=== PATIENT | male | born 1935 | race Asian ===

== ENCOUNTER 2020-11-24 15:58 | Inpatient (IN) | payer OTHER ==
[2020-11-24 20:06] LABS: BASO % 0.1 % (0-2.0); HEMATOCRIT 37.5 % (35.4-49); HEMOGLOBIN 12.5 GM/dL (11.7-16.9); LYMPH % 11.4 % (8-40); MCH 31.3 pg (25.7-33.7); MCHC 33.5 g/dl (32.0-35.9); MEAN CELL VOLUME 93.6 fl (80-96); MEAN PLT VOLUME 7.9 fl (7.5-11.1); NEUT % 82.5 % (42.8-82.8); PLATELET COUNT 267 K/MM3 (134-434); RDW 12.9 % (11.9-15.9); WHITE BLOOD COUNT 6.4 K/mm3 (4.0-10.0)
[2020-11-24 20:23] LABS: ALBUMIN 2.7 g/dl (3.4-5.0); CALCIUM 8.1 mg/dL (8.5-10.1)
[2020-11-24 20:24] LABS: BLOOD UREA NITROGEN 29.8 mg/dL (7-18); MAGNESIUM 2.2 mg/dL (1.8-2.4)
[2020-11-24 20:27] LABS: CREATININE 1.3 mg/dL (0.55-1.3)
[2020-11-24 20:28] LABS: BILIRUBIN,TOTAL 0.9 mg/dL (0.2-1); TOT PROT 6.3 g/dl (6.4-8.2)
[2020-11-24] MEDS ORDERED: AZITHROMYCIN IVPB 500 MG in DEXTROSE 5%-WATER - 250 ML IVPB ONE (21:15)
[2020-11-24] MEDS ORDERED: CEFTRIAXONE 1,000 MG in DEXTROSE 5%-WATER - 50 ML IVPB ONE (21:15)
[2020-11-24] MEDS ORDERED: CEFTRIAXONE 1 GM/50 ML BAG ONE (22:01)
[2020-11-24] MEDS ORDERED: AZITHROMYCIN IVPB 500 MG/250 ML BAG IVPB ONE (22:01)
[2020-11-24] MEDS: SODIUM CHLORIDE 1,000 ML IV SCH (22:13)
[2020-11-25] MEDS ORDERED: ENOXAPARIN NA (PORCINE) 40 MG/0.4 ML DISP.SYRIN SQ ONE (08:05)
[2020-11-25] MEDS ORDERED: PANTOPRAZOLE 40 MG TABLET ONE (08:06)
[2020-11-25] MEDS: SODIUM CHLORIDE 1,000 ML IV SCH ×2 (08:39→21:42)
[2020-11-25] MEDS ORDERED: CEFTRIAXONE 1 GM/50 ML BAG ONE (08:51)
[2020-11-25] MEDS: ENOXAPARIN NA (PORCINE) 40 MG/0.4 ML DISP.SYRIN SQ SCH (09:54)
[2020-11-25] MEDS: CEFTRIAXONE 1 GM in DEXTROSE 5%-WATER - 50 ML IVPB SCH (09:55)
[2020-11-25] MEDS ORDERED: PANTOPRAZOLE 40 MG TABLET PO SCH (10:00)
[2020-11-25 11:30] LABS: MAGNESIUM 1.8 mg/dL (1.8-2.4)
[2020-11-25 11:36] LABS: PHOSPHOROUS 2.5 mg/dL (2.5-4.9)
[2020-11-25] MEDS ORDERED: AZITHROMYCIN IVPB 250 MG in DEXTROSE 5%-WATER - 250 ML IVPB SCH (12:45)
[2020-11-25] MEDS ORDERED: methylPREDNISolone NA SUCC 40 MG/1 ML VIAL ONE (13:51)
[2020-11-25] MEDS: methylPREDNISolone NA SUCC 40 MG/1 ML VIAL IVPUSH SCH (14:03)
[2020-11-26] MEDS ORDERED: cefTRIAXone SODIUM 1 GM VIAL ONE (09:27)
[2020-11-26] MEDS ORDERED: DEXTROSE 5%-WATER - 50 ML IVPB ONE (09:27)
[2020-11-26] MEDS: ENOXAPARIN NA (PORCINE) 40 MG/0.4 ML DISP.SYRIN SQ SCH (09:32)
[2020-11-26] MEDS: methylPREDNISolone NA SUCC 40 MG/1 ML VIAL IVPUSH SCH (09:33)
[2020-11-26] MEDS: CEFTRIAXONE 1 GM in DEXTROSE 5%-WATER - 50 ML IVPB SCH (09:33)
[2020-11-26] MEDS: DEXAMETHASONE SOD PHOSPHATE 4 MG/1 ML VIAL IVPUSH SCH (13:58)
[2020-11-26] MEDS ORDERED: REMDESIVIR 200 MG in SODIUM CHLORIDE 210 ML IVPB ONE ×2 (14:00→14:06)
[2020-11-26] MEDS: ENOXAPARIN NA (PORCINE) 60 MG/0.6 ML DISP.SYRIN SQ SCH (21:30)
[2020-11-26] MEDS: SODIUM CHLORIDE 1,000 ML IV SCH (21:32)
[2020-11-27] MEDS: ENOXAPARIN NA (PORCINE) 60 MG/0.6 ML DISP.SYRIN SQ SCH ×2 (09:59→22:44)
[2020-11-27] MEDS: DEXAMETHASONE SOD PHOSPHATE 4 MG/1 ML VIAL IVPUSH SCH (09:59)
[2020-11-27] MEDS ORDERED: REMDESIVIR 100 MG in SODIUM CHLORIDE 230 ML IVPB SCH (14:06)
[2020-11-27] MEDS: REMDESIVIR 100 MG in SODIUM CHLORIDE 230 ML IVPB SCH (18:24)
[2020-11-27] MEDS: SODIUM CHLORIDE 1,000 ML IV SCH (22:44)
[2020-11-28] MEDS: SODIUM CHLORIDE 1,000 ML IV SCH ×3 (09:35→21:23)
[2020-11-28] MEDS: ENOXAPARIN NA (PORCINE) 60 MG/0.6 ML DISP.SYRIN SQ SCH ×2 (09:35→21:19)
[2020-11-28] MEDS: DEXAMETHASONE SOD PHOSPHATE 4 MG/1 ML VIAL IVPUSH SCH (09:35)
[2020-11-28] MEDS: REMDESIVIR 100 MG in SODIUM CHLORIDE 230 ML IVPB SCH (15:25)
[2020-11-28 23:33] VITALS: BMI 20.7
[2020-11-29] MEDS: SODIUM CHLORIDE 1,000 ML IV SCH ×3 (02:42→21:53)
[2020-11-29 06:48] LABS: BASO % 0.2 % (0-2.0); HEMATOCRIT 33.1 % (35.4-49); HEMOGLOBIN 11.5 GM/dL (11.7-16.9); LYMPH % 3.9 % (8-40); MCH 31.9 pg (25.7-33.7); MCHC 34.6 g/dl (32.0-35.9); MEAN CELL VOLUME 92.2 fl (80-96); MEAN PLT VOLUME 7.8 fl (7.5-11.1); MONO % 4.2 % (3.8-10.2); NEUT % 91.7 % (42.8-82.8); PLATELET COUNT 264 K/MM3 (134-434); RBC 3.59 M/mm3 (4.00-5.60); RDW 12.9 % (11.9-15.9); WHITE BLOOD COUNT 8.5 K/mm3 (4.0-10.0)
[2020-11-29 07:18] LABS: BLOOD UREA NITROGEN 21.2 mg/dL (7-18)
[2020-11-29 07:21] LABS: CREATININE 0.7 mg/dL (0.55-1.3)
[2020-11-29] MEDS ORDERED: POTASSIUM CHLORIDE TABS 20 MEQ TABLET.ER (FP) PO ONE (07:39)
[2020-11-29 07:50] LABS: CALCIUM 6.2 mg/dL (8.5-10.1)
[2020-11-29] MEDS: ENOXAPARIN NA (PORCINE) 60 MG/0.6 ML DISP.SYRIN SQ SCH ×2 (10:39→21:52)
[2020-11-29] MEDS: DEXAMETHASONE SOD PHOSPHATE 4 MG/1 ML VIAL IVPUSH SCH (10:40)
[2020-11-29] MEDS ORDERED: CALCIUM GLUCONATE 10% - 1,000 MG/10 ML VIAL IVPB ONE (10:58)
[2020-11-29] MEDS: REMDESIVIR 100 MG in SODIUM CHLORIDE 230 ML IVPB SCH (14:17)
[2020-11-30 08:12] LABS: BLOOD UREA NITROGEN 22.2 mg/dL (7-18); MAGNESIUM 1.7 mg/dL (1.8-2.4)
[2020-11-30 08:15] LABS: CREATININE 0.7 mg/dL (0.55-1.3)
[2020-11-30] MEDS ORDERED: PT OWN MED DRAWER 7, Y5N ONE (09:06)
[2020-11-30] MEDS: FAMOTIDINE 20 MG TABLET PO SCH ×4 (09:43→21:34)
[2020-11-30] MEDS: ENOXAPARIN NA (PORCINE) 60 MG/0.6 ML DISP.SYRIN SQ SCH ×2 (09:44→21:34)
[2020-11-30] MEDS: DEXAMETHASONE SOD PHOSPHATE 4 MG/1 ML VIAL IVPUSH SCH (09:44)
[2020-11-30] MEDS ORDERED: MAGNESIUM SULF 50% (8.12 MEQ/2 ML-1 GM VIAL) IVPB ONE (09:56)
[2020-11-30 10:33] LABS: CALCIUM 6.5 mg/dL (8.5-10.1)
[2020-11-30] MEDS: METOPROLOL TARTRATE 25 MG TABLET (FP) PO SCH (12:11)
[2020-11-30] MEDS: REMDESIVIR 100 MG in SODIUM CHLORIDE 230 ML IVPB SCH (14:40)
[2020-11-30] MEDS: SODIUM CHLORIDE 1,000 ML IV SCH ×2 (17:07→21:34)
[2020-11-30] MEDS: CALCIUM 500MG/VIT-D 200 UNITS COMBO TABLET (FP) PO SCH (21:34)
[2020-11-30] MEDS: ROSUVASTATIN CA 20 MG TABLET PO SCH (21:34)
[2020-12-01 08:26] LABS: HEMATOCRIT 34.6 % (35.4-49); HEMOGLOBIN 12.1 GM/dL (11.7-16.9); LYMPH % 4.1 % (8-40); MEAN CELL VOLUME 91.5 fl (80-96); MEAN PLT VOLUME 8.2 fl (7.5-11.1); MONO % 4.4 % (3.8-10.2); NEUT % 91.5 % (42.8-82.8); PLATELET COUNT 262 K/MM3 (134-434); RBC 3.78 M/mm3 (4.00-5.60); RDW 12.6 % (11.9-15.9); WHITE BLOOD COUNT 8.2 K/mm3 (4.0-10.0)
[2020-12-01] MEDS: SODIUM CHLORIDE 1,000 ML IV SCH (08:44)
[2020-12-01 09:05] LABS: BLOOD UREA NITROGEN 21.6 mg/dL (7-18)
[2020-12-01 09:08] LABS: CREATININE 0.6 mg/dL (0.55-1.3)
[2020-12-01 09:10] LABS: TOT PROT 4.7 g/dl (6.4-8.2)
[2020-12-01 09:27] LABS: CALCIUM 6.4 mg/dL (8.5-10.1)
[2020-12-01] MEDS: CALCIUM 500MG/VIT-D 200 UNITS COMBO TABLET (FP) PO SCH ×3 (10:19→22:10)
[2020-12-01] MEDS: METOPROLOL TARTRATE 25 MG TABLET (FP) PO SCH (10:19)
[2020-12-01] MEDS: ENOXAPARIN NA (PORCINE) 60 MG/0.6 ML DISP.SYRIN SQ SCH ×2 (10:20→21:10)
[2020-12-01] MEDS: FAMOTIDINE 20 MG TABLET PO SCH ×4 (10:20→21:17)
[2020-12-01] MEDS: DEXAMETHASONE SOD PHOSPHATE 4 MG/1 ML VIAL IVPUSH SCH (10:20)
[2020-12-01] MEDS: D5-1/2NS+20 MEQ KCL - 20 MEQ/1,000 ML INFUS.BAG IV SCH (11:14)
[2020-12-01 12:11] LABS: ANISOCYTOSIS 1+; MACROCYTOSIS 0; OVALOCYTE 1+; PLATELET ESTIMATE NORMAL
[2020-12-01] MEDS: ROSUVASTATIN CA 20 MG TABLET PO SCH ×2 (21:10→22:09)
[2020-12-02] MEDS ORDERED: CALCIUM GLUCONATE 10% - 1,000 MG/10 ML VIAL IVPB ONE (10:17)
[2020-12-02] MEDS: METOPROLOL TARTRATE 25 MG TABLET (FP) PO SCH (10:44)
[2020-12-02] MEDS: CALCIUM 500MG/VIT-D 200 UNITS COMBO TABLET (FP) PO SCH (10:44)
[2020-12-02] MEDS: DEXAMETHASONE SOD PHOSPHATE 4 MG/1 ML VIAL IVPUSH SCH (10:44)
[2020-12-02] MEDS: FAMOTIDINE 20 MG TABLET PO SCH (10:44)
[2020-12-02] MEDS: D5-1/2NS+20 MEQ KCL - 20 MEQ/1,000 ML INFUS.BAG IV SCH (10:45)
[2020-12-02] MEDS: ENOXAPARIN NA (PORCINE) 60 MG/0.6 ML DISP.SYRIN SQ SCH (10:45)
[2020-12-02 17:49] VITALS: BP 95/51; PULSE 81; TEMP 97.5
== END 2020-12-02 18:43 | DRG 177 ==
LOC: JER 15:58 → JERBED 22:45 → J4S 11-25 18:58
PROVIDERS: ADMIT Internal Medicine; ATTEND Internal Medicine
PROC: 8E0ZXY6 Isolation (ICD-10-PCS; 2020-11-24)
PROC: XW033E5 Introduction of Remdesivir Anti-infective into Peripheral Vein, Percutaneous Approach, New Technology Group 5 (ICD-10-PCS; 2020-11-26)
PROC: XW13325 Transfusion of Convalescent Plasma (Nonautologous) into Peripheral Vein, Percutaneous Approach, New Technology Group 5 (ICD-10-PCS; principal; 2020-11-27)
DX: U07.1 COVID-19 (principal); J12.82 Pneumonia due to coronavirus disease 2019; G93.41 Metabolic encephalopathy; N17.9 Acute kidney failure, unspecified; I10 Essential (primary) hypertension; E78.5 Hyperlipidemia, unspecified; R41.82 Altered mental status, unspecified; H91.93 Unspecified hearing loss, bilateral; E87.6 Hypokalemia; R09.02 Hypoxemia; I25.10 Atherosclerotic heart disease of native coronary artery without angina pectoris; F03.90 Unspecified dementia, unspecified severity, without behavioral disturbance, psychotic disturbance, mood disturbance, and anxiety; E83.51 Hypocalcemia
CPT/HCPCS: 36415; 36430; 70450-TC; 71045-TC-FY; 80048; 80053; 82550; 82553; 82728; 83605; 83615; 83735; 84100; 84436; 84443; 84484; 85025; 85379; 85384; 86140; 86769; 86850; 86900; 86901; 87040; 87804; 93005; 93010; 97116-GP; 97161-GP; 99285-25; C9399; C9803; P9017; U0003

== ENCOUNTER 2021-01-19 17:54 | Inpatient (IN) | payer OTHER ==
[2021-01-19] MEDS ORDERED: SODIUM CHLORIDE 0.9% 500 ML INFUS.BAG IV ONE (19:03)
[2021-01-19 20:02] LABS: INR 1.12 (0.83-1.09); PROTHROMBIN TIME (PATIENT) 13.5 SEC (9.7-13.0)
[2021-01-19 20:04] LABS: ACTIVATED PTT 33.2 SECONDS (25.2-36.5); BASO % 0.3 % (0-2.0); EOS % 0.5 % (0-4.5); HEMOGLOBIN 11.5 GM/dL (11.7-16.9); MCH 31.8 pg (25.7-33.7); MCHC 33.7 g/dl (32.0-35.9); MEAN CELL VOLUME 94.3 fl (80-96); MEAN PLT VOLUME 7.9 fl (7.5-11.1); MONO % 9.8 % (3.8-10.2); NEUT % 69.4 % (42.8-82.8); PLATELET COUNT 317 K/MM3 (134-434); RBC 3.61 M/mm3 (4.00-5.60); RDW 15.6 % (11.9-15.9); WHITE BLOOD COUNT 7.7 K/mm3 (4.0-10.0)
[2021-01-19 20:10] LABS: EPI CELLS 3 /uL (0-25.1); HYALINE CASTS 1 /uL (0-3.1); URINE APPEARANCE CLEAR; URINE BACTERIA 218 /uL (0-1359); URINE BILIRUBIN NEGATIVE (NEGATIVE); URINE COLOR YELLOW; URINE GLUCOSE (UA) NEGATIVE (NEGATIVE); URINE KETONE NEGATIVE (NEGATIVE); URINE LEUK ESTERASE NEGATIVE (NEGATIVE); URINE NITRITE NEGATIVE (NEGATIVE); URINE PROTEIN NEGATIVE (NEGATIVE); URINE RBC 30 /uL (0-23.9); URINE UROBILINOGEN 0.2 mg/dL (0.2-1.0); URINE WBC 16 /uL (0-25.8)
[2021-01-19 20:14] LABS: CALCIUM 8.9 mg/dL (8.5-10.1)
[2021-01-19 20:15] LABS: ALBUMIN 3.2 g/dl (3.4-5.0); BLOOD UREA NITROGEN 44.7 mg/dL (7-18)
[2021-01-19 20:18] LABS: CREATININE 2.6 mg/dL (0.55-1.3)
[2021-01-19 20:19] LABS: BILIRUBIN,TOTAL 0.8 mg/dL (0.2-1)
[2021-01-19 20:23] LABS: N-TERMINAL BNP 1649.6 pg/ml (5-450)
[2021-01-19 20:28] LABS: POTASSIUM 2.5 mmol/L (3.5-5.1)
[2021-01-19] MEDS ORDERED: POTASSIUM CHLORIDE TABS 20 MEQ TABLET.ER (FP) PO ONE ×3 (20:37→21:40)
[2021-01-19] MEDS ORDERED: KCL 10 MEQ IVPB 10 MEQ/100 ML INFUS.BAG IVPB SCH ×2 (20:45→21:15)
[2021-01-19] MEDS ORDERED: KCL 10 MEQ IVPB 10 MEQ/100 ML INFUS.BAG IVPB ONE ×2 (21:19→22:13)
[2021-01-19] MEDS ORDERED: HEPARIN NA (PORCINE) 5,000 UNITS/ML 1ML VIAL ONE (22:13)
[2021-01-19] MEDS ORDERED: LACTATED RINGERS SOLUTION 1,000 ML/1,000 ML INFUS.BAG IV SCH (22:15)
[2021-01-19] MEDS: HEPARIN NA (PORCINE) 5,000 UNITS/ML 1ML VIAL SQ SCH (22:23)
[2021-01-19] MEDS: KCL 10 MEQ IVPB 10 MEQ/100 ML INFUS.BAG IVPB SCH ×2 (22:26→23:30)
[2021-01-20] MEDS ORDERED: KCL 10 MEQ IVPB 10 MEQ/100 ML INFUS.BAG IVPB ONE (00:28)
[2021-01-20] MEDS: KCL 10 MEQ IVPB 10 MEQ/100 ML INFUS.BAG IVPB SCH ×4 (00:30→15:27)
[2021-01-20 02:46] LABS: URIC ACID 6.9 mg/dL (2.6-7.2)
[2021-01-20] MEDS: HEPARIN NA (PORCINE) 5,000 UNITS/ML 1ML VIAL SQ SCH ×3 (06:50→22:57)
[2021-01-20 09:53] LABS: POTASSIUM 2.9 mmol/L (3.5-5.1)
[2021-01-20 10:28] LABS: BASO % 0.8 % (0-2.0); EOS % 1.4 % (0-4.5); HEMATOCRIT 31.6 % (35.4-49); HEMOGLOBIN 10.6 GM/dL (11.7-16.9); LYMPH % 13.4 % (8-40); MCH 31.8 pg (25.7-33.7); MCHC 33.7 g/dl (32.0-35.9); MEAN CELL VOLUME 94.4 fl (80-96); MEAN PLT VOLUME 8.1 fl (7.5-11.1); NEUT % 74.4 % (42.8-82.8); PLATELET COUNT 306 K/MM3 (134-434); RBC 3.35 M/mm3 (4.00-5.60); RDW 15.3 % (11.9-15.9); WHITE BLOOD COUNT 6.6 K/mm3 (4.0-10.0)
[2021-01-20 10:58] LABS: BLOOD UREA NITROGEN 27.5 mg/dL (7-18); MAGNESIUM 1.8 mg/dL (1.8-2.4)
[2021-01-20 11:00] LABS: CREATININE 1.4 mg/dL (0.55-1.3); PHOSPHOROUS 2.8 mg/dL (2.5-4.9); URIC ACID 6.8 mg/dL (2.6-7.2)
[2021-01-20 11:01] LABS: BILIRUBIN,TOTAL 0.7 mg/dL (0.2-1); TOT PROT 5.8 g/dl (6.4-8.2)
[2021-01-20 11:42] LABS: ALBUMIN 2.7 g/dl (3.4-5.0); CALCIUM 8.6 mg/dL (8.5-10.1)
[2021-01-20 11:49] LABS: POTASSIUM 2.7 mmol/L (3.5-5.1)
[2021-01-20] MEDS ORDERED: POTASSIUM CHLORIDE ORAL LIQUID 20 MEQ/15 ML PO ONE (12:27)
[2021-01-20] MEDS ORDERED: POTASSIUM CHLORIDE TABS 20 MEQ TABLET.ER (FP) PO ONE (12:45)
[2021-01-20] MEDS: POTASSIUM CHLORIDE 40 MEQ in SODIUM CHLORIDE 0.45% 1,000 ML IV SCH (13:36)
[2021-01-20] MEDS ORDERED: ROSUVASTATIN CA 20 MG TABLET (FP) PO SCH (22:00)
[2021-01-20] MEDS: ROSUVASTATIN CA 10 MG TABLET (FP) PO SCH (22:57)
[2021-01-21] MEDS: POTASSIUM CHLORIDE 40 MEQ in SODIUM CHLORIDE 0.45% 1,000 ML IV SCH ×5 (01:54→23:59)
[2021-01-21] MEDS: HEPARIN NA (PORCINE) 5,000 UNITS/ML 1ML VIAL SQ SCH ×3 (05:30→22:25)
[2021-01-21 07:06] LABS: BASO % 0.7 % (0-2.0); EOS % 5.1 % (0-4.5); HEMATOCRIT 29.7 % (35.4-49); HEMOGLOBIN 10.1 GM/dL (11.7-16.9); LYMPH % 20.4 % (8-40); MCH 32.1 pg (25.7-33.7); MCHC 33.9 g/dl (32.0-35.9); MEAN CELL VOLUME 94.9 fl (80-96); MONO % 9.3 % (3.8-10.2); NEUT % 64.5 % (42.8-82.8); PLATELET COUNT 295 K/MM3 (134-434); RBC 3.13 M/mm3 (4.00-5.60); RDW 15.3 % (11.9-15.9); WHITE BLOOD COUNT 6.2 K/mm3 (4.0-10.0)
[2021-01-21 08:04] LABS: POTASSIUM 3.7 mmol/L (3.5-5.1)
[2021-01-21 08:06] LABS: BLOOD UREA NITROGEN 15.7 mg/dL (7-18); CALCIUM 7.8 mg/dL (8.5-10.1); MAGNESIUM 1.6 mg/dL (1.8-2.4)
[2021-01-21 08:07] LABS: ALBUMIN 2.5 g/dl (3.4-5.0)
[2021-01-21 08:09] LABS: CREATININE 0.9 mg/dL (0.55-1.3)
[2021-01-21 08:10] LABS: PHOSPHOROUS 1.5 mg/dL (2.5-4.9)
[2021-01-21 08:11] LABS: BILIRUBIN,TOTAL 0.9 mg/dL (0.2-1); TOT PROT 5.6 g/dl (6.4-8.2)
[2021-01-21] MEDS: METOPROLOL TARTRATE 25 MG TABLET (FP) PO SCH (11:18)
[2021-01-21] MEDS ORDERED: MAGNESIUM 2GM/50ML STERILE WATER IVPB IVPB ONE (13:00)
[2021-01-21] MEDS ORDERED: SODIUM PHOSPHATE - 30 MM in DEXTROSE 5%-WATER - 500 ML IVPB ONE (13:00)
[2021-01-21] MEDS: ROSUVASTATIN CA 10 MG TABLET (FP) PO SCH (22:25)
[2021-01-22] MEDS: POTASSIUM CHLORIDE 40 MEQ in SODIUM CHLORIDE 0.45% 1,000 ML IV SCH ×2 (03:18→16:18)
[2021-01-22] MEDS: HEPARIN NA (PORCINE) 5,000 UNITS/ML 1ML VIAL SQ SCH ×2 (06:06→16:53)
[2021-01-22 07:48] LABS: BASO % 0.9 % (0-2.0); EOS % 8.7 % (0-4.5); HEMOGLOBIN 10.9 GM/dL (11.7-16.9); LYMPH % 23.3 % (8-40); MCHC 33.9 g/dl (32.0-35.9); MEAN CELL VOLUME 94.4 fl (80-96); MEAN PLT VOLUME 8.5 fl (7.5-11.1); MONO % 7.9 % (3.8-10.2); NEUT % 59.2 % (42.8-82.8); PLATELET COUNT 308 K/MM3 (134-434); RBC 3.39 M/mm3 (4.00-5.60); RDW 15.3 % (11.9-15.9); WHITE BLOOD COUNT 7.2 K/mm3 (4.0-10.0)
[2021-01-22 07:56] LABS: INR 1.01 (0.83-1.09); PROTHROMBIN TIME (PATIENT) 12.4 SEC (9.7-13.0)
[2021-01-22 08:25] LABS: CALCIUM 8.1 mg/dL (8.5-10.1)
[2021-01-22 08:26] LABS: BLOOD UREA NITROGEN 12.4 mg/dL (7-18)
[2021-01-22 08:29] LABS: CREATININE 0.8 mg/dL (0.55-1.3); PHOSPHOROUS 2.9 mg/dL (2.5-4.9)
[2021-01-22] MEDS: METOPROLOL TARTRATE 25 MG TABLET (FP) PO SCH (09:54)
[2021-01-22 10:53] LABS: ANISOCYTOSIS 0; MACROCYTOSIS 0; PLATELET ESTIMATE NORMAL
[2021-01-22] MEDS: ROSUVASTATIN CA 10 MG TABLET (FP) PO SCH (21:17)
[2021-01-23 07:30] LABS: BASO % 0.3 % (0-2.0); EOS % 8.7 % (0-4.5); HEMOGLOBIN 11.4 GM/dL (11.7-16.9); LYMPH % 30.8 % (8-40); MCH 32.4 pg (25.7-33.7); MCHC 34.4 g/dl (32.0-35.9); MEAN PLT VOLUME 8.1 fl (7.5-11.1); MONO % 7.1 % (3.8-10.2); NEUT % 53.1 % (42.8-82.8); PLATELET COUNT 348 K/MM3 (134-434); RBC 3.51 M/mm3 (4.00-5.60); RDW 15.3 % (11.9-15.9); WHITE BLOOD COUNT 8.6 K/mm3 (4.0-10.0)
[2021-01-23 07:59] LABS: POTASSIUM 4.1 mmol/L (3.5-5.1)
[2021-01-23 08:07] LABS: BLOOD UREA NITROGEN 19.6 mg/dL (7-18)
[2021-01-23 08:08] LABS: CALCIUM 8.5 mg/dL (8.5-10.1); MAGNESIUM 1.8 mg/dL (1.8-2.4)
[2021-01-23 08:10] LABS: CREATININE 0.9 mg/dL (0.55-1.3)
[2021-01-23 08:11] LABS: PHOSPHOROUS 2.4 mg/dL (2.5-4.9)
[2021-01-23 08:24] LABS: INR 0.98 (0.83-1.09); PROTHROMBIN TIME (PATIENT) 12.1 SEC (9.7-13.0)
[2021-01-23] MEDS: METOPROLOL TARTRATE 25 MG TABLET (FP) PO SCH (09:10)
[2021-01-23] MEDS ORDERED: MULTIVIT-MINERALS ORAL LIQUID PO SCH (10:00)
[2021-01-23 10:02] LABS: ANISOCYTOSIS 0; MACROCYTOSIS 0; OVALOCYTE 1+; PLATELET ESTIMATE NORMAL
[2021-01-23] MEDS ORDERED: ceFAZolin 2 GRAM PREMIX BAG IVPB ONE (11:50)
[2021-01-23] MEDS ORDERED: LACTATED RINGERS SOLUTION 1,000 ML IV SCH (13:45)
[2021-01-23] MEDS: ROSUVASTATIN CA 10 MG TABLET (FP) PO SCH (22:19)
[2021-01-24 07:43] LABS: HEMOGLOBIN 9.3 GM/dL (11.7-16.9); MCH 32.6 pg (25.7-33.7); MCHC 34.5 g/dl (32.0-35.9); MEAN CELL VOLUME 94.5 fl (80-96); PLATELET COUNT 300 K/MM3 (134-434); RBC 2.85 M/mm3 (4.00-5.60); RDW 15.2 % (11.9-15.9); WHITE BLOOD COUNT 8.4 K/mm3 (4.0-10.0)
[2021-01-24 07:57] LABS: POTASSIUM 3.8 mmol/L (3.5-5.1)
[2021-01-24 07:59] LABS: CALCIUM 7.9 mg/dL (8.5-10.1)
[2021-01-24 08:00] LABS: BLOOD UREA NITROGEN 15.3 mg/dL (7-18); MAGNESIUM 1.6 mg/dL (1.8-2.4)
[2021-01-24 08:03] LABS: CREATININE 0.7 mg/dL (0.55-1.3)
[2021-01-24] MEDS: METOPROLOL TARTRATE 25 MG TABLET (FP) PO SCH (09:16)
[2021-01-24] MEDS: MULTIVIT-MINERALS ORAL LIQUID PO SCH (09:16)
[2021-01-24] MEDS ORDERED: MAGNESIUM OXIDE 400 MG TABLET (FP) PO ONE (12:15)
[2021-01-24] MEDS: ROSUVASTATIN CA 10 MG TABLET (FP) PO SCH (20:59)
[2021-01-25] MEDS: MULTIVIT-MINERALS ORAL LIQUID PO SCH (09:48)
[2021-01-25] MEDS: METOPROLOL TARTRATE 25 MG TABLET (FP) PO SCH (09:49)
[2021-01-25] MEDS ORDERED: TAMSULOSIN HCL 0.4 MG CAP PO ONE (19:00)
[2021-01-25] MEDS: ROSUVASTATIN CA 10 MG TABLET (FP) PO SCH (21:12)
[2021-01-26] MEDS ORDERED: TAMSULOSIN HCL 0.4 MG CAP PO SCH (08:30)
[2021-01-26] MEDS ORDERED: metoPROLOL SUCCINATE 25 MG TAB.SR.24H (FP) PO SCH (10:00)
[2021-01-26] MEDS: MULTIVIT-MINERALS ORAL LIQUID PO SCH (10:35)
[2021-01-26 13:59] VITALS: BP 116/58; PULSE 93; TEMP 98.4
[2021-01-26] MEDS ORDERED: MAGNESIUM OXIDE 400 MG TABLET (FP) PO ONE (15:49)
[2021-01-26 15:56] VITALS: BMI 16.2
[2021-01-26] MEDS ORDERED: LOSARTAN POTASSIUM 25 MG TABLET PO SCH (17:00)
== END 2021-01-26 20:00 | DRG 713 ==
LOC: JER 17:54 → JERBED 20:41 → J7W 01-20 05:34
PROVIDERS: ADMIT Internal Medicine; ATTEND Nurse Practitioner Family
PROC: 0VB08ZZ Excision of Prostate, Via Natural or Artificial Opening Endoscopic (ICD-10-PCS; principal; 2021-01-23 10:30)
PROC: 0TBC8ZZ Excision of Bladder Neck, Via Natural or Artificial Opening Endoscopic (ICD-10-PCS; 2021-01-23 10:30)
DX: N40.1 Benign prostatic hyperplasia with lower urinary tract symptoms (principal); N17.9 Acute kidney failure, unspecified; E87.2 Acidosis; I24.8 Other forms of acute ischemic heart disease; N13.1 Hydronephrosis with ureteral stricture, not elsewhere classified; E87.3 Alkalosis; R64 Cachexia; Z68.1 Body mass index [BMI] 19.9 or less, adult; R33.8 Other retention of urine; E87.6 Hypokalemia; I10 Essential (primary) hypertension; E78.00 Pure hypercholesterolemia, unspecified; I25.10 Atherosclerotic heart disease of native coronary artery without angina pectoris; D64.9 Anemia, unspecified; H91.93 Unspecified hearing loss, bilateral; E11.65 Type 2 diabetes mellitus with hyperglycemia; N32.0 Bladder-neck obstruction; N13.9 Obstructive and reflux uropathy, unspecified; I45.10 Unspecified right bundle-branch block; I07.1 Rheumatic tricuspid insufficiency; R77.8 Other specified abnormalities of plasma proteins; Z86.16 Personal history of COVID-19
CPT/HCPCS: 36415; 71045-TC-FY; 76775-TC; 76856-TC; 80048; 80051; 80053; 80061; 81003; 83036; 83605; 83721; 83735; 83880; 84100; 84132; 84153; 84443; 84484; 84550; 85025; 85027; 85610; 85730; 87040; 87086; 88305-TC; 93005; 93010; 93306-TC; 94760; 97116-GP; 97161-GP; 99285-25; C9803; J1644; U0003